=== PATIENT | male | born 1950 | race Caucasian/White ===

== ENCOUNTER 2021-03-13 12:51 | Outpatient (CLI) | payer MEDICARE, BC | END 2021-03-13 12:52 | disposition home or self-care (01) | LOC: CSHCT 12:51 | PROVIDERS: ATTEND Internal Medicine | DX: Z12.2 Encounter for screening for malignant neoplasm of respiratory organs (principal); F17.210 Nicotine dependence, cigarettes, uncomplicated | CPT/HCPCS: 71271 ==

== ENCOUNTER 2022-01-11 10:48 | Outpatient (CLI) | payer MEDICARE, BC | END 2022-01-11 10:49 | disposition home or self-care (01) | LOC: CSHCT 10:48 | PROVIDERS: ATTEND Internal Medicine Pulmonary Disease | DX: Z12.2 Encounter for screening for malignant neoplasm of respiratory organs (principal); F17.210 Nicotine dependence, cigarettes, uncomplicated | CPT/HCPCS: 71271 ==

== ENCOUNTER 2023-02-12 14:03 | Outpatient (CLI) | payer MEDICARE, BC | END 2023-02-12 14:04 | disposition home or self-care (01) | LOC: CSHCT 14:03 | PROVIDERS: ATTEND Internal Medicine | DX: Z12.2 Encounter for screening for malignant neoplasm of respiratory organs (principal); F17.210 Nicotine dependence, cigarettes, uncomplicated; R91.8 Other nonspecific abnormal finding of lung field | CPT/HCPCS: 71271 ==

== ENCOUNTER 2024-02-13 10:57 | Outpatient (CLI) | payer MEDICARE, BC | END 2024-02-13 10:58 | disposition home or self-care (01) | LOC: CSHCT 10:57 | PROVIDERS: ATTEND Internal Medicine | DX: Z12.2 Encounter for screening for malignant neoplasm of respiratory organs (principal); F17.210 Nicotine dependence, cigarettes, uncomplicated | CPT/HCPCS: 71271 ==